=== PATIENT | female | born 1950 | race Caucasian/White ===

== ENCOUNTER 2023-07-20 07:28 | Inpatient (IN) | payer OTHER ==
[~2023-07-20] VITALS: Ht 165.1 cm; Wt 72.3 kg
[2023-07-20] VITALS (9 sets, daily range): BP systolic 132–178; BP diastolic 56–71; PULSE 69–89; RESP 12–17; TEMP 97.8–97.9; O2SAT 92–100
[2023-07-20] MEDS ORDERED: SODIUM CHLORIDE 0.9% 1,000 ML IV ONE (07:45)
[2023-07-20] MEDS ORDERED: InsuLIN REG 1unit/0.01ml Soln (100units/ml) IV ONE (07:45)
[2023-07-20 07:52] LABS: Basophils # (auto) 0 10 ^3/uL (0-0.2); Basophils % (auto) 0.6 % (0.0-2.0); Eosinophils # (auto) 0.1 10 ^3/uL (0-0.8); Eosinophils % (auto) 1.7 % (0.0-7.0); Hematocrit 35.2 % (36.0-46.0); Hemoglobin 11.3 g/dL (12.2-16.2); Lymphocytes # (auto) 0.7 10 ^3/uL (0.4-5.4); Lymphocytes % (auto) 10.1 % (10.0-50.0); Mean Corpuscular Hemoglobin 28.8 pg (28.0-32.0); Mean Corpuscular Hgb Conc. 32.3 g/dL (32.0-36.0); Mean Corpuscular Volume 89.3 fL (80.0-100.0); Monocytes # (auto) 0.5 10 ^3/uL (0-1.3); Monocytes % (auto) 6.6 % (0.0-12.0); Neutrophils # (auto) 5.8 10 ^3/uL (1.6-8.6); Nucleated Red Blood Cells % 0.1 %; Red Blood Cells 3.94 10^6/uL (4.0-5.20); Red Cell Distribution Width 14.9 % (11.8-14.3); White Blood Cell 7.1 10^3/uL (4.4-10.8)
[2023-07-20 08:05] LABS: Alanine Aminotransferase 14 U/L (7-40); Albumin 4.3 g/dL (3.2-4.8); Alkaline Phosphatase 108 U/L (46-116); Anion Gap 10 (5-15); Aspartate Aminotransferase 16 U/L (13-40); BUN/Creatinine Ratio 14.7 (10.0-20.0); Bilirubin, Total 0.2 mg/dL (0.2-1.0); Blood Urea Nitrogen 25 mg/dL (9-23); Calcium 9.8 mg/dL (8.5-10.1); Carbon Dioxide 25 mmol/L (20-30); Chloride 98 mmol/L (98-107); Potassium 4.9 mmol/L (3.5-5.1); Sodium 133 mmol/L (136-145); Total Protein 6.7 g/dL (5.7-8.2)
[2023-07-20 08:08] LABS: INR 0.97 (0.9-1.15); Partial Thromboplastin Time 28.2 SEC (24.5-34.5); Prothrombin Time 10.2 sec (9.3-11.8)
[2023-07-20 08:12] LABS: Glucose 616 mg/dL (74-106)
[2023-07-20 08:37] LABS: Magnesium 1.8 mg/dL (1.6-2.6)
[2023-07-20 10:53] LABS: Urine Bacteria NONE SEEN /hpf (None Seen); Urine Blood Negative /uL (Negative); Urine Clarity Clear (Clear); Urine Color Colorless (Yellow); Urine Protein, UAD Negative (Negative); Urine Specific Gravity 1.011 (1.001-1.035); Urine Urobilinogen Normal (Negative); Urine WBC <1 /hpf (0 - 5)
[2023-07-20] MEDS ORDERED: HEPARIN SODIUM (PORCINE) 5000 UNITS/ML 1ML VIAL IV ONE (11:45)
[2023-07-20] MEDS ORDERED: FUROSEMIDE 40 MG/4 ML VIAL IV ONE (11:45)
[2023-07-20] MEDS ORDERED: MAGNESIUM SULFATE 1GM/100ML 100 ML IV ONE (13:30)
[2023-07-20] MEDS ORDERED: ASPirin 325 MG TAB PO ONE (13:45)
[2023-07-20] MEDS ORDERED: HEPARIN DRIP/D5W 100UNITS/ML 250 ML IV SCH ×2 (13:45→14:30)
[2023-07-20] MEDS ORDERED: MORPHINE SULFATE INJ 2 MG/ml SYRG IV PRN (13:45)
[2023-07-20] MEDS ORDERED: NITROGLYCERIN 0.4 MG SL TAB SL PRN ×2 (13:45→14:00)
[2023-07-20] MEDS ORDERED: CLOPIDOGREL 300 MG TAB PO ONE (13:45)
[2023-07-20] MEDS ORDERED: MORPHINE SULFATE 4 MG/ML SYR/VIAL IV PRN (14:00)
[2023-07-20] MEDS ORDERED: ONDANSETRON HCL 4 MG/2 ML VIAL IV PRN (14:00)
[2023-07-20] MEDS ORDERED: hydrALAZINE HCL 20 MG/ML VL IV PRN (14:00)
[2023-07-20] MEDS ORDERED: DEXTROSE (50%) 50ML SYRG IV PRN (14:00)
[2023-07-20] MEDS ORDERED: VERAPAMIL 2.5MG/ML INJ 2ML VIAL IV ONE (14:09)
[2023-07-20] MEDS ORDERED: HEPARIN SODIUM (PORCINE) 5000 UNITS/ML 1ML VIAL ONE (14:09)
[2023-07-20] MEDS ORDERED: ANGIOMAX 250 MG VIAL IV ONE (14:09)
[2023-07-20] MEDS ORDERED: MIDAZOLAM HCL 2MG/2ML 2ml VIAL (1mg/ml) ONE (14:09)
[2023-07-20] MEDS ORDERED: fentaNYL CITRATE 100 MCG/2 ML VL ONE (14:09)
[2023-07-20] MEDS ORDERED: SODIUM CHL 0.9% 50 ML ONE (14:10)
[2023-07-20] MEDS ORDERED: LIDOCAINE 2%HCL (LOCAL ANESTH.) INJ 20ML MDV ONE (14:10)
[2023-07-20] MEDS ORDERED: IODIXANOL 320MG/ML 100ML BTL IV ONE ×2 (14:10→15:10)
[2023-07-20 14:43] LABS: LDL Cholesterol 138 mg/dL (< 100); Triglycerides 103 mg/dL (< 150)
[2023-07-20 14:45] LABS: Cholesterol 207 mg/dL (< 200); HDL Cholesterol 66 mg/dL (40-59)
[2023-07-20] MEDS ORDERED: NITROGLYCERIN 50MG/250ML 250 ML IV ONE ×2 (15:14)
[2023-07-20] MEDS ORDERED: NITROGLYCERIN 0.4MG/HR TOPICAL PATCH TD ONE (15:30)
[2023-07-20 17:46] LABS: Creatinine, Urine 17.57 mg/dL (30.0-125.0)
[2023-07-20] MEDS: InsuLIN REG 1unit/0.01ml Soln (100units/ml) SC SCH (18:00)
[2023-07-20] MEDS: ACCU-CHEK COMFORT CURVE STRIP VI SCH ×2 (18:00→23:55)
[2023-07-20 18:34] LABS: Magnesium 1.8 mg/dL (1.6-2.6)
[2023-07-20 18:36] LABS: Phosphorus 3.3 mg/dL (2.4-5.1)
[2023-07-20] MEDS: SODIUM CHLORIDE 0.9% 1,000 ML IV SCH (19:00)
[2023-07-20] MEDS: ATORVASTATIN 20 MG TAB PO SCH (21:19)
[2023-07-21] VITALS (8 sets, daily range): BP systolic 117–165; BP diastolic 51–61; PULSE 72–95; RESP 17–20; TEMP 97.5–98.9; O2SAT 96–99
[2023-07-21] MEDS: InsuLIN REG 1unit/0.01ml Soln (100units/ml) SC SCH ×5 (00:04→23:56)
[2023-07-21] MEDS: ACETAMINOPHEN 325 MG TAB PO PRN (04:51)
[2023-07-21] MEDS: ACCU-CHEK COMFORT CURVE STRIP VI SCH ×4 (05:26→23:54)
[2023-07-21 07:44] LABS: Basophils # (auto) 0.1 10 ^3/uL (0-0.2); Basophils % (auto) 0.6 % (0.0-2.0); Eosinophils # (auto) 0.1 10 ^3/uL (0-0.8); Eosinophils % (auto) 1.5 % (0.0-7.0); Hematocrit 35.1 % (36.0-46.0); Hemoglobin 11.8 g/dL (12.2-16.2); Lymphocytes % (auto) 11.9 % (10.0-50.0); Mean Corpuscular Hemoglobin 29.5 pg (28.0-32.0); Mean Corpuscular Hgb Conc. 33.6 g/dL (32.0-36.0); Mean Corpuscular Volume 87.9 fL (80.0-100.0); Monocytes % (auto) 11.5 % (0.0-12.0); Neutrophils # (auto) 6.4 10 ^3/uL (1.6-8.6); Neutrophils % (auto) 74.5 % (37.0-80.0); Nucleated Red Blood Cells % 0.1 %; Red Cell Distribution Width 14.6 % (11.8-14.3); White Blood Cell 8.6 10^3/uL (4.4-10.8)
[2023-07-21 07:51] LABS: Albumin 4.2 g/dL (3.2-4.8); Alkaline Phosphatase 75 U/L (46-116); Anion Gap 7 (5-15); Aspartate Aminotransferase 21 U/L (13-40); BUN/Creatinine Ratio 16.5 (10.0-20.0); Blood Urea Nitrogen 21 mg/dL (9-23); Calcium 9.8 mg/dL (8.5-10.1); Carbon Dioxide 30 mmol/L (20-30); Chloride 98 mmol/L (98-107); Glucose 145 mg/dL (74-106); Potassium 4.5 mmol/L (3.5-5.1); Sodium 135 mmol/L (136-145)
[2023-07-21 07:52] LABS: Bilirubin, Total 0.5 mg/dL (0.2-1.0); Total Protein 6.7 g/dL (5.7-8.2)
[2023-07-21 07:56] LABS: INR 0.98 (0.9-1.15); Prothrombin Time 10.3 sec (9.3-11.8)
[2023-07-21 08:02] LABS: Alanine Aminotransferase < 9 U/L (7-40)
[2023-07-21] MEDS ORDERED: ASPirin 81 mg TAB PO SCH (10:00)
[2023-07-21] MEDS: SODIUM CHLORIDE 0.9% 1,000 ML IV SCH ×3 (10:00→20:00)
[2023-07-21] MEDS: ASPirin 81 mg TAB PO SCH (11:00)
[2023-07-21] MEDS: CLOPIDOGREL BISULFATE 75 MG TAB PO SCH (11:01)
[2023-07-21] MEDS: amLODIPine BESYLATE 5 MG TAB PO SCH (11:01)
[2023-07-21] MEDS: METOPROLOL TARTRATE 25 MG TAB PO SCH ×2 (11:02→21:52)
[2023-07-21] MEDS: DOCUSATE SOD 100 MG CAP PO SCH (11:02)
[2023-07-21] MEDS: ATORVASTATIN 20 MG TAB PO SCH (21:54)
[2023-07-22 05:00] VITALS: BP 117/57; PULSE 63; RESP 18; TEMP 98.6; O2SAT 99
[2023-07-22] MEDS: ACETAMINOPHEN 325 MG TAB PO PRN (05:50)
[2023-07-22] MEDS: InsuLIN REG 1unit/0.01ml Soln (100units/ml) SC SCH (05:50)
[2023-07-22] MEDS: ACCU-CHEK COMFORT CURVE STRIP VI SCH (05:50)
[2023-07-22] MEDS: SODIUM CHLORIDE 0.9% 1,000 ML IV SCH (05:52)
[2023-07-22 08:00] VITALS: BP 117/51; PULSE 72; PULSE 82; PULSE 88; RESP 17; TEMP 98.3; O2SAT 96
[2023-07-22] MEDS ORDERED: CLOP75TA28 PO (08:46)
[2023-07-22 09:00] VITALS: BP 136/64; PULSE 78; RESP 16; TEMP 97.6; O2SAT 95
[2023-07-22] MEDS: DOCUSATE SOD 100 MG CAP PO SCH (11:06)
[2023-07-22] MEDS: ASPirin 81 mg TAB PO SCH (11:06)
[2023-07-22] MEDS: CLOPIDOGREL BISULFATE 75 MG TAB PO SCH (11:07)
[2023-07-22] MEDS: METOPROLOL TARTRATE 25 MG TAB PO SCH (11:08)
[2023-07-22] MEDS: amLODIPine BESYLATE 5 MG TAB PO SCH (11:12)
[2023-07-22 11:20] VITALS: BP 138/64; PULSE 78; RESP 17; TEMP 36.4; O2SAT 98
== END 2023-07-22 13:08 | disposition home or self-care (01) | DRG 321 ==
LOC: EDBD 07:28 → ER 07:28 → TELE 13:59 → TELE-CENTR 17:44
PROVIDERS: ADMIT Nurse Practitioner Family; ATTEND Nurse Practitioner Family
PROC: 027034Z Dilation of Coronary Artery, One Artery with Drug-eluting Intraluminal Device, Percutaneous Approach (ICD-10-PCS; principal; 2023-07-20)
PROC: 4A023N7 Measurement of Cardiac Sampling and Pressure, Left Heart, Percutaneous Approach (ICD-10-PCS; 2023-07-20)
PROC: B211YZZ Fluoroscopy of Multiple Coronary Arteries using Other Contrast (ICD-10-PCS; 2023-07-20)
PROC: B21FYZZ Fluoroscopy of Other Bypass Graft using Other Contrast (ICD-10-PCS; 2023-07-20)
PROC: B218YZZ Fluoroscopy of Left Internal Mammary Bypass Graft using Other Contrast (ICD-10-PCS; 2023-07-20)
PROC: B41FYZZ Fluoroscopy of Right Lower Extremity Arteries using Other Contrast (ICD-10-PCS; 2023-07-20)
DX: I21.4 Non-ST elevation (NSTEMI) myocardial infarction (principal); I50.43 Acute on chronic combined systolic (congestive) and diastolic (congestive) heart failure; N17.0 Acute kidney failure with tubular necrosis; D64.9 Anemia, unspecified; E78.5 Hyperlipidemia, unspecified; I11.0 Hypertensive heart disease with heart failure; I16.0 Hypertensive urgency; I25.10 Atherosclerotic heart disease of native coronary artery without angina pectoris; Z88.6 Allergy status to analgesic agent; Z79.84 Long term (current) use of oral hypoglycemic drugs
CPT/HCPCS: 36415; 71045; 80053; 80061; 81001; 82010; 82570; 82962; 83036; 83735; 83880; 84100; 84300; 84443; 84484; 85025; 85610; 85730; 92941; 93005; 93306; 93459; 99152; 99291; C1874; C1894; G0378; J1815; J2250; Q9967